=== PATIENT | male | born 1990 | race Caucasian/White ===

== ENCOUNTER 2018-07-03 11:07 | Emergency (ER) | payer OTHER ==
[2018-07-03 11:18] VITALS: BMI 19.5
[2018-07-03 11:20] VITALS: RESP 18
[2018-07-03] MEDS ORDERED: Sodium Chloride 0.9% 1,000 ML IV ONE (11:35)
[2018-07-03 11:58] LABS: BASO % 0.5 % (0.0-2.0); EOS # 0.4 K/uL (0.0-0.7); EOS % 4.1 % (0.0-4.0); HEMOGLOBIN 16.8 g/dL (12.0-18.0); LYMPH # 1.9 K/uL (1.0-4.3); LYMPH % 20.8 % (20.0-40.0); MEAN CELL VOLUME 85.1 fL (80.0-94.0); MEAN CORPUSCULAR HEMOGLOBIN 28.8 pg (27.0-31.0); MEAN CORPUSCULAR HGB CONC 33.9 g/dL (33.0-37.0); MEAN PLATELET VOLUME 8.5 fL (7.2-11.7); MONO # 0.6 K/uL (0.0-0.8); MONO % 6.5 % (0.0-10.0); NEUT # 6.3 K/uL (1.8-7.0); NEUT % 68.1 % (50.0-75.0); NRBC % 0.3 % (0.0-2.0); RBC 5.82 Mil/uL (4.40-5.90); RED CELL DISTRIBUTION WIDTH 13.6 % (11.5-14.5); WHITE BLOOD COUNT 9.3 K/uL (4.8-10.8)
[2018-07-03] MEDS ORDERED: Sodium Chloride 0.9% 1,000 ML ONE (11:59)
[2018-07-03 12:07] LABS: INR 1.1; PROTHROMBIN TIME 11.9 SECONDS (9.7-12.2)
--- NOTE | 2018-07-03 12:13 | C.PDOC ---
Time Seen by Provider: 07/03/18 11:34 Chief Complaint (Nursing): Medical Clearance Past Medical History Vital Signs: Last Vital Signs Temp 97.9 F 07/03/18 11:18 Pulse 78 07/03/18 11:18 Resp 18 07/03/18 11:18 BP 135/86 07/03/18 11:18 Pulse Ox 98 07/03/18 11:18 - Medical History PMH: Asthma, Depression - Social History Hx Alcohol Use: Yes Hx Substance Use: No - Immunization History Hx Tetanus Toxoid Vaccination: No Hx Influenza Vaccination: Yes Hx Pneumococcal Vaccination: No ED Course And Treatment - Laboratory Results Result Diagrams: 07/03/18 11:52 Lab Results: PT 11.9 SECONDS (9.7-12.2) 07/03/18 11:52 INR 1.1 07/03/18 11:52 APTT 41 SECONDS (21-34) H 07/03/18 11:52 O2 Sat by Pulse Oximetry: 98 Progress Note: Blood work, EKG, CXR (preop) ordered and reviewed. Spoke with anesthesiologist, patient will not be able to have surgery now. Called back by OR, Dr. Olsen will not be able to do surgery today, requests patient be discharged to his office after preio studies done. Disposition - Disposition Forms: [employer] (Bangladeshi)
--- NOTE | 2018-07-03 12:15 | C.PDOC ---
History Of Present Illness 28 y/o male presents to the ED complaining of rectal pain for 1 week. Patient was seen by Dr. Cummings in the office 2 weeks ago. At the time he had bleeding from his hemorrhoids, and was instructed to come in for hemorrhoid surgery today. Patient notes he last ate cashews and drank water at 8:00am. Admits to current pain but denies bleeding. Otherwise he denies any abdominal pain, fevers, or chills. PMHx is significant for asthma. Time Seen by Provider: 07/03/18 11:34 Chief Complaint (Nursing): Medical Clearance History Per: Patient History/Exam Limitations: no limitations Onset/Duration Of Symptoms: Days Current Symptoms Are (Timing): Still Present Past Medical History Reviewed: Historical Data, Nursing Documentation, Vital Signs Vital Signs: Last Vital Signs Temp 97.9 F 07/03/18 11:18 Pulse 78 07/03/18 11:18 Resp 18 07/03/18 11:18 BP 135/86 07/03/18 11:18 Pulse Ox 98 07/03/18 11:18 - Medical History PMH: Asthma, Depression Family History: States: Unknown Family Hx - Social History Hx Alcohol Use: Yes Hx Substance Use: No - Immunization History Hx Tetanus Toxoid Vaccination: No Hx Influenza Vaccination: Yes Hx Pneumococcal Vaccination: No Review Of Systems Constitutional: Negative for: Fever, Chills Gastrointestinal: Positive for: Rectal Pain. Negative for: Nausea, Vomiting, Abdominal Pain, Diarrhea, Other (rectal bleed) Neurological: Negative for: Weakness, Dizziness Physical Exam - Physical Exam Appears: Non-toxic, No Acute Distress Skin: Normal Color, Warm, Dry Head: Atraumatic, Normacephalic Eye(s): bilateral: Normal Inspection, PERRL, EOMI Neck: Normal ROM Chest: Symmetrical Cardiovascular: Rhythm Regular, No Murmur Respiratory: Normal Breath Sounds, No Rales, No Rhonchi, No Wheezing Gastrointestinal/Abdominal: Soft, No Tenderness, No Distention Rectal: Deferred Back: Normal Inspection Extremity: Bilateral: Atraumatic, Normal Color And Temperature Neurological/Psych: Oriented x3, Normal Speech ED Course And Treatment - Laboratory Results Result Diagrams: 07/03/18 11:52 07/03/18 11:52 O2 Sat by Pulse Oximetry: 98 (RA) Pulse Ox Interpretation: Normal Progress Note: Blood work, EKG, CXR (preop) ordered and reviewed. Spoke with anesthesiologist, patient will not be able to have surgery now. Called back by OR, Dr. Cummings will not be able to do surgery today, requests patient be discharged to his office after preio studies done. Disposition Counseled Patient/Family Regarding: Studies Performed, Diagnosis, Need For Followup - Disposition Referrals: Pranav Cummings MD [Staff Provider] - Disposition: HOME/ ROUTINE Disposition Time: 13:11 Condition: STABLE Additional Instructions: FOLLOW UP WITH DR CUMMINGS AFTER DISCHARGE, IN HIS OFFICE RETURN TO ER IF YOU HAVE ANY CONCERNING SYMPTOMS Instructions: Hemorrhoids (DC) Forms: [email or web address] (Egyptian) Print Language: HUNGARIAN - Clinical Impression Clinical Impression: Hemorrhoids - Scribe Statement The provider has reviewed the documentation as recorded by the Grace Benito Provider Attestation: All medical record entries made by the Grace were at my direction and persona lly dictated by me. I have reviewed the chart and agree that the record accurately reflects my personal performance of the history, physical exam, medical decision making, and the department course for this patient. I have also personally directed, reviewed, and agree with the discharge instructions and disposition.
[2018-07-03 12:16] LABS: ALB/GLOB RATIO 1.6 (1.0-2.1); ALBUMIN 5.4 g/dL (3.5-5.0); ALT/SGPT 23 U/L (21-72); AST/SGOT 33 U/L (17-59); BLOOD UREA NITROGEN 13 mg/dL (9-20); GFR NON-AFRICAN AMERICAN > 60
--- NOTE | 2018-07-03 12:22 | RAD ---
HISTORY: PREOP COMPARISON: None available. TECHNIQUE: Chest, one view. FINDINGS: LUNGS: No focal consolidation. Please note that chest x-ray has limited sensitivity for the detection of pulmonary masses. PLEURA: No significant pleural effusion identified. No definite pneumothorax . CARDIOVASCULAR: Heart size appears within normal limits. No significant atherosclerotic calcification present. OSSEOUS STRUCTURES: No acute osseous abnormality identified. VISUALIZED UPPER ABDOMEN: Unremarkable. OTHER FINDINGS: None. IMPRESSION: No focal consolidation.
[2018-07-03 13:14] VITALS: BP 112/78; PULSE 75; TEMP 98; O2SAT 99
--- NOTE | 2018-07-06 12:10 | CARD ---
APPROVED REPORT Date of service: 07/03/2018 EKG Measurement Heart [id number] <Conclusion> Normal sinus rhythm Normal ECG
== END 2018-07-03 13:18 | disposition home or self-care (01) ==
LOC: C.ER 11:07
DX: K64.9 Unspecified hemorrhoids (principal); J45.909 Unspecified asthma, uncomplicated; F17.210 Nicotine dependence, cigarettes, uncomplicated
CPT/HCPCS: 71045; 80053; 85025; 85610; 85730; 93005; 99282; J7030

== ENCOUNTER 2018-07-04 12:36 | Inpatient (IN) | payer OTHER ==
[2018-07-04 12:36] VITALS: BMI 19.5
--- NOTE | 2018-07-04 13:58 | C.PDOC ---
History Of Present Illness 28 y/o male sent by his PMD Dr. Olsen for hemorrhoid procedure for the operating room. Patient denies any nausea, vomiting, abdominal pain, or other symptoms. Has no other complaints at this time. Time Seen by Provider: 07/04/18 13:14 Chief Complaint (Nursing): GI Problem History Per: Patient History/Exam Limitations: no limitations Onset/Duration Of Symptoms: Days Current Symptoms Are (Timing): Still Present Past Medical History Reviewed: Historical Data, Nursing Documentation, Vital Signs Vital Signs: Last Vital Signs Temp 98 F 07/04/18 12:41 Pulse 92 H 07/04/18 12:41 Resp 18 07/04/18 12:41 BP 139/91 H 07/04/18 12:41 Pulse Ox 100 07/04/18 12:41 - Medical History PMH: Asthma, Depression Family History: States: No Known Family Hx - Social History Hx Alcohol Use: Yes Hx Substance Use: No - Immunization History Hx Tetanus Toxoid Vaccination: No Hx Influenza Vaccination: Yes Hx Pneumococcal Vaccination: No Review Of Systems Gastrointestinal: Positive for: Other (hemorrhoids) Physical Exam - Physical Exam Appears: Non-toxic, No Acute Distress Skin: Normal Color, Warm, Dry Head: Atraumatic, Normacephalic Eye(s): bilateral: Normal Inspection, PERRL, EOMI Oral Mucosa: Moist Neck: Supple Cardiovascular: Rhythm Regular, No Murmur Respiratory: Normal Breath Sounds, No Rales, No Rhonchi, No Wheezing Rectal: Hemorrhoids (external), Other (thrombose palpable) Extremity: Bilateral: Atraumatic, Normal Color And Temperature, Normal ROM Neurological/Psych: Oriented x3, Normal Speech ED Course And Treatment O2 Sat by Pulse Oximetry: 100 (RA) Pulse Ox Interpretation: Normal Medical Decision Making Medical Decision Making: Plan: --Labs Disposition Discussed With : Pranav Olsen Counseled Patient/Family Regarding: Studies Performed, Diagnosis - Disposition Disposition: HOSPITALIZED Disposition Time: 13:57 Condition: FAIR Forms: [employer] (Pashto) - Clinical Impression Clinical Impression: Thrombosed hemorrhoids - Scribe Statement The provider has reviewed the documentation as recorded by the Grace Trent Provider Attestation: All medical record entries made by the Nedraibe were at my direction and personally dictated by me. I have reviewed the chart and agree that the record accurately reflects my personal performance of the history, physical exam, medical decision making, and the department course for this patient. I have also personally directed, reviewed, and agree with the discharge instructions and disposition.
[2018-07-04 14:11] LABS: BASO % 0.7 % (0.0-2.0); EOS # 0.4 K/uL (0.0-0.7); EOS % 5.2 % (0.0-4.0); HEMOGLOBIN 15.3 g/dL (12.0-18.0); LYMPH # 1.8 K/uL (1.0-4.3); LYMPH % 25.6 % (20.0-40.0); MEAN CELL VOLUME 85.6 fL (80.0-94.0); MEAN CORPUSCULAR HEMOGLOBIN 28.7 pg (27.0-31.0); MEAN CORPUSCULAR HGB CONC 33.6 g/dL (33.0-37.0); MEAN PLATELET VOLUME 8.9 fL (7.2-11.7); MONO # 0.5 K/uL (0.0-0.8); MONO % 7.4 % (0.0-10.0); NEUT # 4.2 K/uL (1.8-7.0); NEUT % 61.1 % (50.0-75.0); NRBC % 0.1 % (0.0-2.0); RBC 5.31 Mil/uL (4.40-5.90); RED CELL DISTRIBUTION WIDTH 13.7 % (11.5-14.5); WHITE BLOOD COUNT 6.9 K/uL (4.8-10.8)
[2018-07-04 14:13] LABS: INR 1.1; PROTHROMBIN TIME 11.9 SECONDS (9.7-12.2)
[2018-07-04 14:25] LABS: ALB/GLOB RATIO 1.8 (1.0-2.1); ALT/SGPT 29 U/L (21-72); AST/SGOT 24 U/L (17-59); BLOOD UREA NITROGEN 11 mg/dL (9-20); CALCIUM 9.5 mg/dl (8.6-10.4); GFR NON-AFRICAN AMERICAN > 60
[2018-07-04] MEDS ORDERED: ceFAZolin 1 gm in NS 1 GM/100 ML BAG IVPB ONE (16:06)
[2018-07-04] MEDS ORDERED: Lidocaine Hydrochloride 0 ML INJ ONE (16:35)
[2018-07-04] MEDS ORDERED: Bupivacaine 0.25% 20 ML INJ IJ ONE (16:35)
[2018-07-04] MEDS ORDERED: Bupivacaine HCl 0.5% PF (10 ml) Inj ONE (16:35)
[2018-07-04] MEDS ORDERED: Absorbable Gelatin Sponge Size 12-7 ONE (16:37)
[2018-07-04] MEDS ORDERED: Propofol 10 mg/ml Inj (20 ML) ONE (16:39)
[2018-07-04] MEDS: Lactated Ringer's 1,000 ML IV SCH (18:24)
[2018-07-04] MEDS: Oxycodone/Acetaminophen 5/325 mg Tab PO PRN (20:09)
[2018-07-05 00:40] VITALS: RESP 20
[2018-07-05] MEDS: Oxycodone/Acetaminophen 5/325 mg Tab PO PRN ×2 (01:17→05:36)
--- NOTE | 2018-07-05 02:18 | OP ---
PROCEDURE DATE: 07/04/2018 PREOPERATIVE DIAGNOSIS: Hemorrhoids and rectal bleeding. POSTOPERATIVE DIAGNOSIS: Hemorrhoids, anal fissure, and rectal polyp. PROCEDURES: 1. Complex hemorrhoidectomy. 2. Internal sphincterotomy. 3. Transanal excision of rectal polyp (full thickness). 4. Advancement flap closure. 5. Repair of rectal blood vessel. SURGEON: Pranav Olsen MD WILTON WEAVER: General. ESTIMATED BLOOD LOSS: 30 mL. POSTOPERATIVE CONDITION: Stable. INDICATIONS FOR SURGERY: This is a 28-year-old male, who presents with multiple rectal pathologies including pain, bleeding, and "tearing" sensation every time he moves his bowels. He was examined in the office. His examination at my office was very painful; however, I found complex hemorrhoids along with a small posterior midline anal fissure. He now is scheduled for hemorrhoidectomy and sphincterotomy for his fissure. DESCRIPTION OF PROCEDURE: The patient was taken to the operating room. General anesthesia was administered. He was placed in a prone position and the buttocks were taped open. The rectal area was prepped and draped. There were two large complex hemorrhoids noted, one in the left lateral position, the other in the right posterior position. The left lateral hemorrhoid was grasped using a Selene clamp and a suture of 0 chromic was placed a the base. An elliptical incision was made surrounding the hemorrhoid bundle and onto the anal skin, was dissected free and removed. Bleeding was controlled using the Bovie. A larger pudendal blood vessel was noted to be bleeding pretty vigorously and was repaired with Prolene after it was mobilized. Blood flow confirmed by Doppler. Next, generous tissue flaps were raised because of the size of the wound and counter incisions were made and advancement flap closure was performed with a single full-thickness layer of heavy chromic. The right posterior hemorrhoid was removed in a similar fashion. During this removal, the internal sphincter was grasped and divided and also the posterior fissure was removed, and advancement flap closure was again performed to prevent anal stenosis. An anterior midline polyp just below the dentate line was then removed through full-thickness excision and simple repair was performed with chromic. The patient tolerated the procedure well. Returned to recovery room in stable condition. Pranav Olsen MD [facility] # [id number]
[2018-07-05] MEDS: Lactated Ringer's 1,000 ML IV SCH (04:24)
[2018-07-05 07:32] LABS: BASO % 0.3 % (0.0-2.0); EOS # 0.2 K/uL (0.0-0.7); EOS % 2.5 % (0.0-4.0); LYMPH # 1.7 K/uL (1.0-4.3); LYMPH % 17.1 % (20.0-40.0); MEAN CELL VOLUME 84.5 fL (80.0-94.0); MEAN CORPUSCULAR HEMOGLOBIN 28.2 pg (27.0-31.0); MEAN CORPUSCULAR HGB CONC 33.3 g/dL (33.0-37.0); MEAN PLATELET VOLUME 8.5 fL (7.2-11.7); MONO # 0.8 K/uL (0.0-0.8); MONO % 7.8 % (0.0-10.0); NEUT # 7.1 K/uL (1.8-7.0); NEUT % 72.3 % (50.0-75.0); RBC 4.78 Mil/uL (4.40-5.90); RED CELL DISTRIBUTION WIDTH 13.5 % (11.5-14.5); WHITE BLOOD COUNT 9.8 K/uL (4.8-10.8)
[2018-07-05 07:33] LABS: BLOOD UREA NITROGEN 10 mg/dL (9-20); GFR NON-AFRICAN AMERICAN > 60
[2018-07-05 07:34] LABS: HEMOGLOBIN 13.4 g/dL (12.0-18.0)
[2018-07-05 08:06] VITALS: BP 113/65; PULSE 70; TEMP 98.2; O2SAT 97
[2018-07-05] MEDS ORDERED: POLYETHYLENE GLYCOL 3350 17 GM/Dose PACKET PO ONE (12:00)
== END 2018-07-05 12:24 | disposition home or self-care (01) | DRG 349 ==
LOC: C.ER 12:36 → C.SDS 14:17 → C.9E 15:24 → C.9S 15:47 → C.6T 17:15
PROVIDERS: ADMIT Surgery; ATTEND Surgery
PROC: 0HX9XZZ Transfer Perineum Skin, External Approach (ICD-10-PCS; 2018-07-04)
PROC: 0DBQ7ZX Excision of Anus, Via Natural or Artificial Opening, Diagnostic (ICD-10-PCS; 2018-07-04)
PROC: 0D8R0ZZ Division of Anal Sphincter, Open Approach (ICD-10-PCS; 2018-07-04)
PROC: 06QY0ZZ Repair Lower Vein, Open Approach (ICD-10-PCS; 2018-07-04)
PROC: 06BY0ZC Excision of Hemorrhoidal Plexus, Open Approach (ICD-10-PCS; principal; 2018-07-04 15:00)
DX: K64.5 Perianal venous thrombosis (principal); K60.2 Anal fissure, unspecified; K62.1 Rectal polyp; J45.909 Unspecified asthma, uncomplicated